=== PATIENT | male | born 1955 | race Caucasian/White ===

== ENCOUNTER 2019-08-07 05:36 | Inpatient (IN) | payer BC ==
[~2019-08-07 05:36] MED LIST: Buffered Lidocaine 1% SYRIN* 1 ML/SYRINGE INTRADERM ONE; Tranexamic Acid 1,000 MG in NS 0.9% 50 ML* (outpatient use) IV SCH
--- OUTSIDE RECORDS SUMMARY | 2019-08-07 05:40 | XMS REPORT | Continuity of Care Document ---
:1955 External Reference #:[id number] Author Name ESTEBAN Zambrano (transmitted by agent of provider Brenda Lucas) Address [address] , [place] [address] Care Team Providers Name Role Phone Ruslan Whalen MD - Family Medicine Care Team Information Naval Inspector iMlo Hong MD - Infectious Care Team Information Naval Inspector [phone] Disease Problems Active Problems Provider Date Infection AND/OR inflammatory reaction Milo Hong M.D. Onset: 08/25 due to internal prosthetic device, implant AND/OR graft Arthroplasty of knee ESTEBAN Zambrano Onset: 07/19/2019 Loosening of tibial component of total Carlitos Lane M.D. Onset: 05/19/2017 knee replacement Localized, secondary osteoarthritis of Carlitos Lane M.D. Onset: 05/19/2017 the ankle and/or foot Arthralgia of the pelvic region and thigh Carlitos Lane M.D. Onset: 2016 Varicose veins of lower extremity Carlitos Lane M.D. Onset: 05/10/2015 Social History Type Date Description Comments Sex Unknown Tobacco Use Start: Unknown Patient has never smoked Smoking Status Reviewed: 07/19/19 Patient has never smoked Allergies, Adverse Reactions, Alerts Active Allergies Reaction Severity Comments Date Levaquin hives 10/12/2012 Inactive Allergies NKDA 08/25/2012 Medications Active Medications SIG Qnty Indications Ordering Date Provider Percocet 1/2 to [address] 07/19/2019 5-325mg Tablets by mouth every M.D. 4 - 6 hours as needed for pain, generic Ok Diclofenac Sodium apply 4 gr to 300gm M71.[address], 03/08/2019 1% Gel knees twice a M.D. day as needed Cyclobenzaprine HCL take 1 tablet 60tabs M62.[address], 2017 10mg Tablets PO qhs as M.D. needed for muscle pain/spasms Aspir-81 1 po qd Unknown 81mg Tablets DR Pantoprazole Sodium 1 by mouth Unknown 40mg Tablets every day DR Hydrochlorothiazide 1 by mouth Unknown 12.5mg every day Capsules Medications Administered in Office Medication SIG Qnty Indications Ordering Provider Date Depomedrol 80MG DIO Merrill 04/28/2012 Injection Depomedrol 80MG Carlitos Lane M.D. 02/03/2012 Injection Depomedrol 80MG Carlitos [address] M.D. 10/06/2011 Injection Immunizations Description No Information Available Vital Signs Date Vital Result Comment 07/19/2019 11:15am Height 73 inches 6'1" Weight 280.25 lb Heart Rate 76 /min BP Systolic 162 mmHg BP Diastolic 88 mmHg Respiratory Rate 12 /min Body Temperature 96.5 F Pain Level 0 BMI (Body Mass Index) 37.0 kg/m2 05/03/2019 11:36am Height 73 inches 6'1" Weight 250.00 lb Heart Rate 91 /min BP Systolic 158 mmHg BP Diastolic 88 mmHg Body Temperature 97.7 F Pain Level 9 BMI (Body Mass Index) 33.0 kg/m2 Results Description No Information Available Procedures Description No Information Available Medical Devices Description No Information Available Encounters Type Date Location Provider Dx Diagnosis Office Visit 05/03/[address] [facility] [address] T84.032D [facility] loosening of 11:30a at [facility] internal right knee prosthetic joint, subs Z96.651 Presence of right artificial knee joint Office Visit 03/08/2019 Jennifer Urbina T84.032D [facility] loosening 11:15a Orthoped[address] M.D. of internal Adams right knee prosthetic joint, subs M71.22 Synovial cyst of popliteal space [Dahl], left knee Z96.651 Presence of right artificial knee joint Assessments Date Code Description Provider 07/19/2019 T84.032D Mechanical loosening of internal right knee ESTEBAN Zambrano prosthetic joint 07/19/2019 Z96.651 Presence of right artificial knee joint ESTEBAN Zambrano 05/03/2019 T84.032D Mechanical loosening of internal right knee Carlitos Lane M.D. prosthetic joint 05/03/2019 Z96.651 Presence of right artificial knee joint Carlitos Lane M.D. 03/08/2019 T84.032D Mechanical loosening of internal right knee Carlitos Lane M.D. prosthetic joint 03/08/2019 M71.22 Synovial cyst of popliteal space [Dahl], Carlitos Lane M.D. left knee 03/08/2019 Z96.651 Presence of right artificial knee joint Cariltos Lane M.D. Plan of Treatment Future Appointment(s):08/23/2019 8:30 am - Carlitos Lane M.D. at [facility] at Whnliy0308/07/2019 7:30 am - ESTEBAN Rees at [facility] at Umtqqz9408/07/2019 7:30 am - Carlitos Lane M.D. at [facility] at Dfowzy0907/19/2019 - Rosita Nails, PAT84.032D Mechanical loosening of internal right knee prosthetic jointFollow up:Follow up 4 weeks post-opZ96.651 Presence of right artificial knee joint Functional Status Description No Information Available Mental Status Description No Information Available Referrals Description No Information Available
[2019-08-07] MEDS ORDERED: Dexamethasone IV* 4 MG/ML 1 ML (4 MG) IV SLOW PU ONE (06:00)
[2019-08-07] MEDS ORDERED: Gabapentin CAP(*) 300 MG PO ONE (06:00)
[2019-08-07] MEDS ORDERED: Lactated Ringers 1000 ML Bag* 1,000 ML IV SCH (06:00)
[2019-08-07] MEDS ORDERED: celeCOXIB CAP* 200 MG PO ONE (06:00)
[2019-08-07] MEDS ORDERED: Famotidine IV* 10 MG/ML 2 ML (20 mg) IV ONE (06:00)
[2019-08-07] MEDS ORDERED: Gabapentin CAP(*) 300 MG ONE (06:07)
[2019-08-07] MEDS ORDERED: Dexamethasone IV* 4 MG/ML 1 ML (4 MG) ONE (06:07)
[2019-08-07] MEDS ORDERED: celeCOXIB CAP* 200 MG ONE (06:07)
[2019-08-07] MEDS ORDERED: ceFAZolin 2 GM PREMIX in ORs 2 GM/50 ML BAG ONE ×2 (06:07→11:52)
[2019-08-07] MEDS ORDERED: Famotidine IV* 10 MG/ML 2 ML (20 mg) ONE (06:08)
[2019-08-07] MEDS ORDERED: fentaNYL* 50 MCG/ML 2 ML VIAL (100 MCG VIAL) ONE (07:01)
[2019-08-07] MEDS ORDERED: Midazolam* 1 MG/ML 2 ML VIAL (2 MG) ONE ×2 (07:01→08:47)
[2019-08-07] MEDS ORDERED: Lidocaine 2% PF * 5 ML VIAL ONE (07:04)
[2019-08-07] MEDS ORDERED: ROPIVACAINE 5 MG/ML 30 ML BTL (0.5%) ONE ×2 (07:04→07:13)
[2019-08-07] MEDS ORDERED: Bupivacaine 0.5% SDV PF* 30ML VIAL ONE (07:07)
[2019-08-07] MEDS ORDERED: Lidocaine 1% MPF ** 5 ML VIAL ONE (07:13)
[2019-08-07] MEDS ORDERED: Bupivacaine 0.25% EPI 200,000* 30 ML SDV ONE (07:19)
[2019-08-07] MEDS ORDERED: Vancomycin(*) 1,000 MG VIAL ONE (07:20)
[2019-08-07] MEDS ORDERED: KETAMINE HCL* 50 MG/ML 10 ML VIAL ONE (07:47)
[2019-08-07] MEDS ORDERED: Propofol* 500 MG/50 ML BTL ONE (08:05)
[2019-08-07] MEDS ORDERED: Ondansetron INJ* 2 MG/ML VIAL IV PRN ×2 (09:12→12:04)
[2019-08-07] MEDS ORDERED: HYDROmorphone INJ1* 1 MG/ML SYRINGE IV PRN (09:12)
[2019-08-07] MEDS ORDERED: Naloxone* 0.4 MG/ML 1 ML VIAL IV PRN (09:12)
[2019-08-07] MEDS ORDERED: Propofol* 10 MG/ML 20 ML BTL ONE ×2 (10:24→11:13)
[2019-08-07] MEDS: Acetaminophen IV 1GM/100ML * 1,000 MG/100 ML VIAL IVPB ONE ×2 (11:45→12:57)
[2019-08-07] MEDS ORDERED: Magnesium Hydroxide LIQ* 30 ML UDC PO PRN (12:04)
[2019-08-07] MEDS ORDERED: Cyclobenzaprine TAB* 10 MG PO PRN (12:04)
[2019-08-07] MEDS ORDERED: diPHENhydraMINE PO* 25 MG PO PRN (12:04)
[2019-08-07] MEDS ORDERED: oxyCODONE TAB* 5 MG TAB PO PRN (12:04)
[2019-08-07] MEDS ORDERED: Ondansetron ODT TAB* 4 MG PO PRN (12:04)
[2019-08-07] MEDS ORDERED: diPHENhydraMINE IV* 50 MG/ML 1 ml VIAL (BENADRYL) IV PRN (12:04)
[2019-08-07] MEDS ORDERED: Ketorolac INJ* 30 MG/ML 1 ML VIAL IV PRN (12:04)
[2019-08-07] MEDS ORDERED: Ketorolac INJ* 30 MG/ML 1 ML VIAL ONE ×2 (12:55→14:05)
[2019-08-07] MEDS ORDERED: Acetaminophen IV 1GM/100ML * 100 ML ONE (12:55)
[2019-08-07] MEDS ORDERED: ceFAZolin 1 GM ADVAN(*) 1 GM in NS 0.9% 50 ML* 50 ML IVPB SCH (13:00)
[2019-08-07] MEDS ORDERED: oxyCODONE TAB* 5 MG TAB ONE (14:05)
[2019-08-07] MEDS: D5W 1/2 NS 1000 ML BAG* 1,000 ML IV SCH (14:40)
[2019-08-07] MEDS: traMADol TAB* 50 MG PO SCH ×2 (15:03→21:11)
[2019-08-07] MEDS ORDERED: Warfarin TAB(*) 10 MG PO ONE (17:00)
[2019-08-07] MEDS: ceFAZolin 1 GM ADVAN(*) 1 GM in NS 0.9% 50 ML* 50 ML IVPB SCH (17:01)
[2019-08-07] MEDS: oxyCODONE TAB* 5 MG TAB PO PRN (17:01)
--- NOTE | 2019-08-07 18:53 | CONS ---
CC: Dr. Whalen; Dr. Lane* CONSULTATION REPORT: DATE OF CONSULT: 08/07/19 PRIMARY CARE PROVIDER: Dr. Whalen. PHYSICIAN REQUESTING CONSULT: Dr. Lane from Orthopedic Surgery. CHIEF COMPLAINT: Right knee pain. HISTORY OF PRESENT ILLNESS: Dorian Walker is a 64-year-old male status post revision of right knee arthroplasty performed today by Dr. Lane. Postoperatively, he feels well. Consult was requested in regards of the patient 's history of hypertension to the Medicine Service by Dr. Lane. PAST MEDICAL HISTORY: 1. Gastroesophageal reflux disease. 2. Hypertension. 3. Status post total knee replacement on the right in 2011. The patient developed infection and had to have a spacer placed. The patient stated that this is his fifth surgery on his right knee. 4. He also has history of total left hip arthroplasty that was rather uneventful. MEDICATIONS AT HOME: Include: 1. Protonix 40 mg daily. 2. Losartan/hydrochlorothiazide 100/25 one tablet daily. 3. Ibuprofen on a p.r.n. basis. 4. Aspirin 81 mg daily. ALLERGIES: No known drug allergies. FAMILY HISTORY: Reviewed and noncontributory. 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 He denies any tobacco, alcohol , or drug use. He lives with his family and his surrogate is his , Alondra Walker. REVIEW OF SYSTEMS: Please see history of present illness. All the remaining 12 systems were reviewed with the patient and were otherwise negative. PHYSICAL EXAM: Blood pressure of 142/90, heart rate of 73 and regular, respiratory rate 18, oxygen saturation 98% on room air, temperature 97.8. General: The patient is a very pleasant 64-year-old male who is in no acute distress. The patient is alert and oriented x3. HEENT: Head: Atraumatic, normocephalic. Eyes: Pupils are equal and reactive to light and accommodation. Oropharynx is clear. Mucosa moist. Neck: Supple. No JVD. No bruits bilaterally. Cardiovascular: Regular rate and rhythm. No murmur. Respiratory : Clear to auscultation bilaterally. Abdomen: Soft, nontender. Bowel sounds are present in all 4 quadrants. Extremities: Right knee is in postsurgical dressing and was not uncovered. Otherwise, pedal pulses are +2 bilaterally. There is no clubbing, no cyanosis and no edema of bilateral ankles. Neuro Evaluation: Speech clear. Cranial nerves II through XII grossly intact. Motor strength is 5/5 bilaterally. DIAGNOSTIC STUDIES/LAB DATA: Currently none. ASSESSMENT AND PLAN: 1. In regards of the patient's postoperative management status post right knee revision, as per Dr. Lane, the patient is continued on aspirin 81 mg daily and heparin 5000 u every 8 hours for DVT prophylaxis. 2. In regards of the patient's hypertension, I would recommend holding the patient's hydrochlorothiazide and losartan for the time being and restart it only if the patient becomes hypertensive in the morning. Otherwise, I will continue holding it. 3. For DVT prophylaxis, as mentioned above, the patient is on heparin for DVT prophylaxis as well as being started on Coumadin as per primary service. 4. The patient's code status is full. His surrogate is his . Thank you very much for allowing our service to see the patient in consultation. We will follow on as needed basis and sign off for now. Please call if needed. TIME SPENT: Approximately 55 minutes was spent on the patient's consultation, more than half that time was spent [id number] with the patient during the interview and physical exam. [id number]/[facility] #: [id number] MTDD
[2019-08-07] MEDS: Docusate CAP* 100 MG PO SCH (21:11)
[2019-08-07] MEDS: Magnesium Hydroxide LIQ* 30 ML UDC PO SCH (21:11)
[2019-08-07] MEDS: Acetaminophen TAB* 325 MG PO SCH (21:11)
--- NOTE | 2019-08-07 23:02 | OP ---
OPERATIVE REPORT: DATE OF OPERATION: 08/07/19 - Inpatient, room U 348-01 DATE OF : 55 SURGEON: Carlitos Lane M.D. MILK INSPECTOR: Elvia Younger RPA. ANESTHESIOLOGIST: Yury Yoo M.D. ANESTHESIA: Regional/spinal/sedation. PRE-OP DIAGNOSIS: Loose right total knee replacement. POST-OP DIAGNOSIS: Loose right total knee replacement. OPERATIVE PROCEDURE: Revision right total knee arthroplasty. ESTIMATED BLOOD LOSS: 250 cc. COMPLICATIONS: None. INDICATIONS: Mr. Walker is a 64-year-old male, who in July of 2012, underwent a right total knee arthroplasty. Initially, had done well, but had a sudden onset of pain and swelling and had been diagnosed with an infection. He underwent a washout with placement of an antibiotic cement depot with retention of his components. 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 As time went by however, he developed a large effusion and this was tapped and negative for infection. At his next year 's followup however, it became evident that the tibia was loosening and for several years now I had told him that the tibia was loose and needed to be revised. 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 Finally though, the knee has been bothering him enough,as it will collapse when he moves just the right way, so he is interested in getting something done. Risks of surgery such as infection, scar formation, stiffness, DVT, pulmonary embolism , hardware failure, and continued pain were some of the risks discussed. He had been declared medically optimized and wished to proceed. DESCRIPTION OF PROCEDURE: The patient had an adductor canal block done in the holding area and was brought back to the OR. Spinal anesthesia was introduced. Palomares catheter was placed and tourniquet was placed over the proximal right thigh. Tourniquet time would be 96 minutes for the first set and then tourniquet was left down for almost an hour, and then put up again for cementing such that total tourniquet time would be 126 minutes. Right knee was prepped and then draped. Esmarch was used to exsanguinate the leg and the tourniquet was raised. Incision was made midline using the old scar and carried down through the skin and subcutaneous scar. Extensor mechanism was exposed and full-thickness flaps were attempted to be raised. I thought I did a nice sharp exposure, as I could see as VMO and medial parapatellar arthrotomy was made. Yellowish, slightly blood- tinged fluid, which was clear, was encountered. Several large chunks of synovium were sent for tissue culture. There was proliferative synovium and much of this were sharply excised. Soft tissues were sharply elevated from the medial side of the tibia and care was taken to slowly expose underside of the patella, as only the very tip of the dome was visible. Eventually, however, most of the patellar component was exposed and it was in excellent condition with no wear at all. Continuing to expose synovium, I was able to expose femoral and tibial components nicely. Several pieces of heterotopic ossification were also sharply removed. With exposure of the knee, I was able to free and disengage the polyethylene, and this aided in exposure. Once the polyethylene was out, a little more dissection was carried out, and then tibial component just lifted out easily. Similarly, most tibial cement pieces also all came out quite easily. Once the tibia was out, I was able to also essentially lift the femur out, but femur still had impacted cement underneath. Hammer and osteotome was used to remove a lot of the cement pieces and while I did not lose significant bone during this process, it was clear he already lost significant bone with the looseness of the components. Quite a bit of fibrous adhesions were removed from the surfaces of the bone as well. Once this was finally nicely cleaned up and I had nice exposed bone, step drill was used to open the pedestal down the tibial canal, and the reamers were used on the tibia. I had a nice [id number] fit with a 17, then with a 17-stem with the outrigger for the cutter was placed and initially I thought I would have more bone laterally based on the x-rays, but there was actually more bone loss on that lateral side. I initially had thought to just put a 10-mm medial augment laterally. I could see I had lost bone anteriorly on that lateral side and while I still had the 10-mm posteriorly, I would need just an anterior half augment, which was not something that was possible Therefore, I thought taking a good 10-mm cut directly across and then using a full 10-mm augment would work well. Cut was made and nice cut with good bone was exposed. Trial was placed and could be seen that the augment with the trial sat very nicely. Attention was turned to the femur. Step drill was used to open the femoral canal and femur was slowly reamed. At an 18, I had a nice fit and this was trialed and then the box cut was finished, so that I could put in the LCCK and have stem support with the femur. Unfortunately, with the 18, he seemed to fit in odd rotational position and a little bit of valgus. I tried initially with the offset stem, but this did not work well and eventually downsized the intramedullary steven, so that I could get the angle that I needed, so I would have good flexion and extension gaps on the knee joint. Augments were then used so that I had some bony contact between the end of the components and the implants. Eventually I was able to adjust the pieces and trimmed some of the bone so the femur seemed to sit quite nicely. With the 12 polyethylene, he came out nicely into full extension, flexed well, and appeared to have good stability throughout. My preference would have been to use an LPS polyethylene , but none of these were available, so I ended up using one of the constrained polyethylenes. Tourniquet had been let down by this point and the knee was copiously pulse lavaged and a few small bleeders addressed using electrocautery. Posterior aspect of the knee was injected using 20 cc of 0.25% Marcaine with epinephrine and additional 10 cc was placed in the lateral gutter. Parts were called for and cement was being prepared. Once this parts had rabia assembled and the cement was ready, Esmarch was used to exsanguinate the legs and the tourniquet was again raised. Antibiotic tobramycin simplex cement was used and tibia and femur were both cemented into place. Cement was allowed to harden and excess cement was removed. The knee was again searched for excess cement and a few small pieces were found. Tourniquet was let down and the knee was again copiously pulse lavaged. It was trialed with a 12 and then a 10, but it could be seen with a 10, he was definitely loose and the 12 was perfect. The 12 polyethylene was snapped into place and then bolted into place. He had the same wonderful motion and stability. The knee was again copiously pulse lavaged and 1 g of vancomycin was sprinkled into the exposed knee joint. Parapatellar arthrotomy was repaired using interrupted #1 Vicryl sutures. Wound was again copiously pulse lavaged and subcutaneous tissues were approximated using 2-0 Vicryl. Skin was closed using nestor. Sterile dressing and a Cryo/Cuff were applied in the OR. The patient was then awakened stable and transferred to the recovery room. [id number]/[facility] #: [id number] ALTA
[2019-08-08] MEDS: ceFAZolin 1 GM ADVAN(*) 1 GM in NS 0.9% 50 ML* 50 ML IVPB SCH ×2 (00:16→07:34)
[2019-08-08] MEDS: D5W 1/2 NS 1000 ML BAG* 1,000 ML IV SCH ×2 (00:18→10:53)
[2019-08-08] MEDS: oxyCODONE TAB* 5 MG TAB PO PRN ×2 (00:19→05:58)
[2019-08-08] MEDS: traMADol TAB* 50 MG PO SCH ×3 (02:02→09:54)
[2019-08-08 04:49] LABS: Hematocrit 29 % (42-52); Hemoglobin 9.9 g/dL (14.0-18.0); Mean Platelet Volume 7.3 fL (7.4-10.4); Platelet Count 212 10^3/uL (150-450)
[2019-08-08 04:55] LABS: INR 1.17 (0.82-1.09)
[2019-08-08 05:07] LABS: BUN/Creatinine Ratio 25.5 (8-20); Calcium 8.3 mg/dL (8.6-10.3); EGFR Non-African American 73.5 (>60); Potassium 4.6 mmol/L (3.5-5.0)
[2019-08-08] MEDS: Acetaminophen TAB* 325 MG PO SCH ×2 (05:59→13:00)
[2019-08-08] MEDS ORDERED: Aspirin EC TAB* 81 MG TAB.EC PO SCH (09:00)
[2019-08-08] MEDS ORDERED: Pantoprazole TAB * 40 MG TAB PO SCH (09:00)
[2019-08-08] MEDS ORDERED: Vitamin THERAPEUTIC TAB PO SCH (09:00)
[2019-08-08] MEDS: Docusate CAP* 100 MG PO SCH (09:54)
[2019-08-08] MEDS: Magnesium Hydroxide LIQ* 30 ML UDC PO SCH (09:55)
[2019-08-08] MEDS: Heparin VIAL(*) 5000 UNITS/ML VIAL (FIVE THOUSAND) SUBCUT SCH ×2 (09:55→14:15)
--- NOTE | 2019-08-08 11:15 | DS ---
Orthopedic Discharge Summary - Discharge Summary Date of Admission:08/07/19 Date of Discharge: 08/08/2019 Date of Surgery: 08/07/2019 Attending Orthopedic Provider: Dr. Lane Pre-operative Diagnosis: Loose right total knee arthroplasty Operative Procedure: Revision right total knee arthroplasty Disposition of Patient: home Condition of Patient: good History: CAROLINE SCHOFIELD is a 64 year old M with years of increasingly severe right total knee pain. Patient has failed conservative management and has elected to undergo a revision right total knee replacement Hospital Course: CAROLINE was admitted to [facility] on 08/07/19. Patient underwent a revision right total knee arthroplasty without complication followed by a brief recovery in PACU and transfer to the Short Stay Surgical Unit in stable condition. Our hospitalist service, physical therapy and occupational therapy also participated in this patients care. Post-op day 1: patient was alert and in no acute distress. Dressing was soaked due to increased amount of saline that was irrigated through the incision and intact. Operative extremity dorsiflexion and plantarflexion intact, sensation intact to light touch distally, DP2+. Post-op day two: dressing was changed, again was soaked but the incision was clean and intact with no active drainage. Patient was deemed to be medically and orthopedically stable for discharge. Physical therapy goals were met. Home Medications Medication Instructions Recorded Confirmed Type Aspirin EC TAB* [Ecotrin EC Low 81 mg PO QAM 09/27/14 08/07/19 History Dose 81 MG*] Ibuprofen TAB* [Advil TAB*] 200 mg PO Q8H 09/27/14 08/07/19 History Pantoprazole TAB * [Protonix TAB*] 40 mg PO QAM 05/07/15 08/07/19 History Losartan-Hctz 100-25 mg Tab 1 tab PO QAM 07/19/19 08/07/19 History oxyCODONE TAB* [Roxycodone TAB 5 5 mg PO Q4H PRN tab 08/08/19 Rx mg*] oxyCODONE TAB* [Roxycodone TAB 5 10 mg PO Q4H PRN tab 08/08/19 Rx mg*] Discharge Instructions following Orthopedic Surgery: Activity: * Weight Bearing as tolerated * Continue physical therapy and occupational therapy exercises as shown Wound care: * OK to shower on post-op day 3, no bathing, swimming, or submerging wound. * Use gentle soap, pat dry. Cover with gauze, LAURA wrap or tape. * Visiting home nurse to do wound checks. Call Orthopedic office for: * Increased drainage * Redness * Increased pain * Fever Go to ER with shortness of breath or chest pain. Diet: * Regular diet * Increase fluids and fiber to prevent constipation. * Continue to use stool softeners, call office if no bowel motion within 48 hours. Medications See Home Medication List in your packet for medications that you should take after discharge. DVT Prophylaxis: Coumadin Dosing: * Please note that you have been given 2 mg tablets. * Visiting home nurse to draw blood work for INR on Wednesday and . * You will be provided with dose instructions on Mondays and . * If you do not receive dosing instruction on dosing, please call our office right away. Please mitchell dosing instructions on your calendar as they are provided to you. * Dosing: INR blood draw for further dosing instructions. Call orthopedic office if you do not receive dosing instructions. Lovenox Dosing: [40] mg twice a day Aspirin Dosin mg twice a day Pain Control: Oxycodone Dosin mg 1-2 tabs by mouth every 4-6 hours as needed for pain. Maximum of 10 tabs per day. Antibiotics are required prior to any dental work. FOLLOW UP: Follow up with [Ariana] Within 10-14 days, call for appointment Please call our office with any questions or concerns ([phone])
[2019-08-08 12:00] VITALS: BP 145/86
[2019-08-09] MEDS ORDERED: Bisacodyl SUPP* 10 MG SUPP PR PRN (12:04)
== END 2019-08-08 14:08 | disposition home health service (06) | DRG 302 ==
LOC: AA 05:36 → SSU 12:04
PROVIDERS: ADMIT Orthopaedic Surgery; ATTEND Orthopaedic Surgery
PROC: 0SRC0J9 Replacement of Right Knee Joint with Synthetic Substitute, Cemented, Open Approach (ICD-10-PCS; 2019-08-07)
PROC: 0SPC0JZ Removal of Synthetic Substitute from Right Knee Joint, Open Approach (ICD-10-PCS; principal; 2019-08-07 07:30)
DX: T84.032A Mechanical loosening of internal right knee prosthetic joint, initial encounter (principal); Y72.2 Prosthetic and other implants, materials and accessory otorhinolaryngological devices associated with adverse incidents; K21.9 Gastro-esophageal reflux disease without esophagitis; I10 Essential (primary) hypertension; Z96.642 Presence of left artificial hip joint; E78.5 Hyperlipidemia, unspecified; K57.90 Diverticulosis of intestine, part unspecified, without perforation or abscess without bleeding; E66.9 Obesity, unspecified; Y92.9 Unspecified place or not applicable; Z79.82 Long term (current) use of aspirin; Z79.899 Other long term (current) drug therapy; Z79.01 Long term (current) use of anticoagulants; Z88.1 Allergy status to other antibiotic agents; Z68.37 Body mass index [BMI] 37.0-37.9, adult
CPT/HCPCS: 36415; 80048; 85014; 85018; 85049; 85610; 86850; 86900; 86901; 87070; 87205; 88300; A9270-GY; C1776; G8978-GP-CK; G8979-GP-CI; J0690; J1100; J1644; J1885; J2250; J2704; J2795; J3010; J3370; J3490

== ENCOUNTER 2021-09-19 11:25 | Inpatient (IN) ==
[2021-09-19] MEDS ORDERED: Lactated Ringers 1000 ml BAG IV.FLUID IV ONE (11:37)
[2021-09-19 12:15] LABS: Hematocrit 36 % (42-52); Hemoglobin 11.8 g/dL (14.0-18.0); Mean Corpuscular HGB Conc 33 g/dL (31-36); Mean Corpuscular Hemoglobin 29 pg (27-31); Mean Corpuscular Volume 87 fL (80-94); Platelet Count 172 10^3/uL (150-450); Red Blood Count 4.12 10^6 /uL (4.18-5.48); Red Cell Distribution Width 16 % (10-15); White Blood Count 3.1 10^3/uL (3.5-10.8)
[2021-09-19 12:16] LABS: ABS Eosinophils 0.1 10^3/ul (0-0.6); ABS Lymphocytes 0.7 10^3/ul (1.0-4.8); ABS Monocytes 0.5 10^3/ul (0-0.8); ABS Neutrophils 1.8 10^3/ul (1.5-7.7); Eosinophil % 2.7 %
[2021-09-19 12:24] LABS: Activated Partial Thrombo Time 33.5 seconds (26.0-38.0); INR 1.58 (0.86-1.15)
[2021-09-19 12:31] LABS: Albumin/Globulin Ratio 1.3 (1-3); C Reactive Protein 5.86 mg/L (<8.01); Calcium 9.3 mg/dL (8.6-10.3); Globulin 3.1 g/dL (2-4); Potassium 3.7 mmol/L (3.5-5.0); Total Bilirubin 0.6 mg/dL (0.2-1.0); Total Protein 7.1 g/dL (6.4-8.9); eGFR CKD-EPI 53.6 (>60)
[2021-09-19 12:33] LABS: Troponin I 0.01 ng/mL (<0.03)
[2021-09-19 14:14] LABS: Urine Appearance Clear; Urine Bilirubin Negative (Negative); Urine Blood Negative (Negative); Urine Color Straw; Urine Glucose Negative (Negative); Urine Ketones Negative (Negative); Urine Nitrite Negative (Negative); Urine Protein Negative (Negative); Urine Specific Gravity 1.008 (1.002-1.030); Urine Urobilinogen Negative (Negative)
[2021-09-19] MEDS ORDERED: Ondansetron ODT 4 mg TAB 4 MG TAB SL PRN (14:29)
[2021-09-19] MEDS ORDERED: Metoprolol Tartrate 5 mg VIAL 5 ml VIAL (1 mg/ml) IV ONE (15:20)
[2021-09-19] MEDS ORDERED: Metoprolol Tartrate 5 mg VIAL 5 ml VIAL (1 mg/ml) IV PRN (15:22)
[2021-09-19] MEDS: cefTRIAXone 2 GM ADDV.VIAL 2 GM in NS 0.9% 100 ml BAG 100 ML IV SCH (16:06)
[2021-09-20 06:12] LABS: ABS Eosinophils 0.1 10^3/ul (0-0.6); ABS Lymphocytes 0.8 10^3/ul (1.0-4.8); ABS Monocytes 0.6 10^3/ul (0-0.8); ABS Neutrophils 1.7 10^3/ul (1.5-7.7); Eosinophil % 2.2 %; Hematocrit 33 % (42-52); Hemoglobin 11.2 g/dL (14.0-18.0); Lymphocyte % 25.6 %; Mean Corpuscular HGB Conc 34 g/dL (31-36); Mean Corpuscular Hemoglobin 29 pg (27-31); Mean Corpuscular Volume 86 fL (80-94); Mean Platelet Volume 7.9 fL (7.4-10.4); Platelet Count 158 10^3/uL (150-450); Red Blood Count 3.86 10^6 /uL (4.18-5.48); Red Cell Distribution Width 15 % (10-15); White Blood Count 3.3 10^3/uL (3.5-10.8)
[2021-09-20 06:38] LABS: Calcium 9.1 mg/dL (8.6-10.3); Magnesium 1.4 mg/dL (1.9-2.7); Potassium 3.8 mmol/L (3.5-5.0); eGFR CKD-EPI 58.4 (>60)
[2021-09-20] MEDS ORDERED: Magnesium Sulf 4 GM/100 ML IV 4,000 MG/100 ML BAG IVPB ONE (08:00)
[2021-09-20] MEDS ORDERED: Lactated Ringers 1000 ml BAG 1,000 ML IV SCH (08:00)
[2021-09-20] MEDS ORDERED: Potassium Chlor 20 meq TAB.ER PO ONE (09:13)
[2021-09-20] MEDS: Aspirin EC 81 mg TAB.EC (enteric coated) PO SCH (09:37)
[2021-09-20 10:07] LABS: C Reactive Protein 9.69 mg/L (<8.01)
[2021-09-20] MEDS: cefTRIAXone 2 GM ADDV.VIAL 2 GM in NS 0.9% 100 ml BAG 100 ML IV SCH (15:13)
[2021-09-21 05:49] LABS: ABS Eosinophils 0.1 10^3/ul (0-0.6); ABS Lymphocytes 0.8 10^3/ul (1.0-4.8); ABS Monocytes 0.6 10^3/ul (0-0.8); ABS Neutrophils 1.5 10^3/ul (1.5-7.7); Eosinophil % 2.8 %; Hematocrit 32 % (42-52); Hemoglobin 10.9 g/dL (14.0-18.0); Lymphocyte % 28.2 %; Mean Corpuscular HGB Conc 34 g/dL (31-36); Mean Corpuscular Hemoglobin 29 pg (27-31); Mean Corpuscular Volume 86 fL (80-94); Mean Platelet Volume 7.5 fL (7.4-10.4); Nucleated Red Blood Cells % 0.1; Platelet Count 162 10^3/uL (150-450); Red Blood Count 3.73 10^6 /uL (4.18-5.48); Red Cell Distribution Width 15 % (10-15)
[2021-09-21 06:09] LABS: Calcium 8.9 mg/dL (8.6-10.3); Magnesium 1.9 mg/dL (1.9-2.7); Potassium 3.8 mmol/L (3.5-5.0); eGFR CKD-EPI 64.7 (>60)
[2021-09-21] MEDS: Aspirin EC 81 mg TAB.EC (enteric coated) PO SCH (09:59)
[2021-09-21 11:16] VITALS: BP 153/85
[2021-09-21] MEDS: cefTRIAXone 2 GM ADDV.VIAL 2 GM in NS 0.9% 100 ml BAG 100 ML IV SCH (14:09)
== END 2021-09-21 15:45 | disposition home or self-care (01) | DRG 871 ==
LOC: ED 11:25 → EDHOLD 11:25 → MED 14:39 → SUATTDRO 15:54
PROVIDERS: ADMIT Internal Medicine; ATTEND Hospitalist